=== PATIENT | male | born 1935 | race Caucasian/White ===

== ENCOUNTER 2019-05-02 15:32 | Outpatient (CLI) | payer MEDICARE, OTHER, SELFPAY ==
--- NOTE | 2019-05-02 | XR_ITS ---
WS: [id number] CHEST 2 VIEWS HISTORY: COUGH COMPARISON: 06/29/2016 Lungs: Mild hyperinflation with scattered granulomata. Similar appearance to the prior examination. N o pneumonia or pulmonary mass identified. No effusions. Cardiac size: Normal. Mediastinum/Aorta: Mild atherosclerosis aorta. Bones: Thoracic spondylosis, mild. XR/XR chest 2V* [id number] IMPRESSION: Prior granulomatous disease. No acute cardiopulmonary disease.
== END 2019-05-02 15:33 | disposition home or self-care (01) ==
LOC: RADOUTREAD 05-03 07:26
PROVIDERS: Family Provider Family Medicine; PCP Family Medicine; Referring Provider Family Medicine; Visit Provider Family Medicine
DX: R05 Cough (principal)

== ENCOUNTER 2020-07-26 06:00 | Outpatient (RCR) | payer MEDICARE, OTHER, SELFPAY | END 2020-08-23 23:59 | disposition home or self-care (01) | LOC: SPT 06:00 | PROVIDERS: Family Provider Family Medicine; PCP Family Medicine; Referring Provider Family Medicine; Visit Provider Family Medicine | DX: H81.11 Benign paroxysmal vertigo, right ear (principal) | CPT/HCPCS: 95992; 97161 ==

== ENCOUNTER 2020-08-20 11:50 | Emergency (ER) | payer MEDICARE, OTHER, SELFPAY ==
[2020-08-20 11:57] VITALS: BP 144/73; PULSE 95; RESP 15; O2SAT 98; BMI 23.6
--- NOTE | 2020-08-20 12:11 | W.ED.NEUROSD ---
HPI - Neuro Symptoms/Deficit General: Chief Complaint: Neuro Symptoms/Deficit Stated Complaint: R SIDED NUMBNESS Time Seen by Provider: 08/20/20 12:02 Source: patient Mode of arrival: ambulatory Limitations: no limitations History of Present Illness: HPI Narrative: This is an 85 year old male with no significant past medical history who presents to the ED with concerns for a CVA. He states that he woke this morning and his left middle and index finger were numb as well as the tip of his left thumb. 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 He has no focal weakness, no gait difficulties, no facial droop, headache or dizziness. No prior history of CVA. No history of carpal tunnel disease. History of same: No Severity: mild Quality: numb Relieving factors: none Exacerbating factors: none Context: sudden onset On Anticoagulants: No Associated symptoms: Deny chest pain, cough, diaphoresis, fevers/chills, headache(s), anorexia, malaise, nausea, seizures, short of breath, syncope, tingling, vertigo, vomiting or weakness Treatments Prior to Arrival: none Review of Systems General: Reports: 10 or more systems reviewed and unremarkable except in HPI and below Const: Denies: malaise or diaphoresis Card: Denies: chest pain or syncope GI: Denies: nausea or vomiting Neuro: Denies: headache(s) or vertigo NIH stroke score NIHSS: Level Of Consciousness - 1a: 0 Level Of Consciousness Questions - 1b: Both Correct Level Of Consciousness Commands - 1c: Both Correct Best Gaze - 2: Normal Visual Resendiz - 3: No Visual Loss Facial Palsy - 4: Normal Motor Arm Right - 5: No Drift Motor Arm Left - 5: No Drift Motor Leg Right - 6: No Drift Motor Leg Left - 6: No Drift Limb Ataxia - 7: Absent Sensory - 8: Normal Best Language - 9: No Aphasia Dysarthia - 10: Normal Extinction And Inattention - 11: 0 Score: Total Score: 0 Physical Exam Const: COMMON NORMALS: no acute distress, average body habitus, patient oriented x3, no limitations, healthy appearing, alert and well nourished HENMT: COMMON NORMALS: normocephalic, atraumatic and moist oral mucous membranes HEAD & SCALP: normocephalic and atraumatic Neck/C-Spine: COMMON NORMALS: no meningeal signs and no JVD OTHER: Negative Spurling sign Resp: COMMON NORMALS: normal respiratory effort, No retractions, No use of accessory muscles, clear to auscultation bilaterally and percussion normal AUSCULTATION: clear to auscultation bilaterally PERCUSSION: percussion normal Cardio: COMMON NORMALS: no JVD, regular rate, regular rhythm, S1 normal heart sound present, S2 normal heart sound present, No gallops present (Cardio), No clicks present (Cardio), No murmurs present (Cardio), No rub (Cardio) and Peripheral pulses 2+ throughout RATE: regular rate RHYTHM: regular rhythm HEART SOUNDS: S1 normal heart sound present and S2 normal heart sound present PERIPHERAL PULSES: Peripheral pulses 2+ throughout GI: COMMON NORMALS: Normal to inspection, nondistended, normoactive bowel sounds present, Soft to palpation, non-tender, No hepatosplenomegaly present, no masses and no bruits PALPATION: Yes Soft to palpation and Yes No hepatosplenomegaly present Extremity: COMMON NORMALS: normal to inspection, full ROM, capillary refill normal, no calf tenderness and no pedal edema Neuro: COMMON NORMALS: patient oriented x3 SENSORIUM/ORIENTATION: Yes alert MENINGEAL SIGNS: Yes no meningeal signs Skin: COMMON NORMALS: no rashes or lesions noted, no wounds, turgor normal, no jaundice, no petechiae and no mottling GENERAL SKIN EXAM: no rashes or lesions noted and turgor normal Course Vital Signs: Vital signs: Vital Signs Pulse Rate 95 08/20/20 11:57 Respiratory Rate 15 08/20/20 11:57 Blood Pressure 144/73 08/20/20 11:57 Pulse Oximetry 98 08/20/20 11:57 MDM - Neuro Symptoms/Deficit MDM Narrative: Medical decision making narrative: 85-year-old male who presents to the emergency department with concerns for a CVA. On examination he is NIHSS was 0 he has paresthesia in the distribution of the median nerve of his left hand. He likely has carpal tunnel syndrome or at least some form of median nerve neuropathy. He is reassured and discharged home to follow-up with his primary care provider. Medical Records: Attestation: I reviewed the patient's medical records. Discharge Plan Discharge Patient Disposition: Home Clinical Impression: Left median nerve neuropathy Condition: Stable Prescriptions: Continued furosemide 20 mg tablet 20 mg PO DAILY PRN (Reason: edema) Qty: 7 RF: 0 Discharge Orders: Discharge ED (Routine); Ordered 08/20/20 Ordered By: Lovely Lloyd Referrals: Rakesh Middleton MD [Primary Care Provider] - 1-3 days Discharge Diet: Usual diet Discharge Activity: Increase activity as tolerated Patient Instructions: Carpal Tunnel Syndrome Exercises (GEN), Carpal Tunnel Syndrome (ED), Paresthesia (ED) Activity Restrictions/Additional Instructions: Return for any new or worsening symptoms. What you are exhibiting is symptoms consistent with median nerve neuropathy, the most common cause of that is carpal tunnel syndrome. Follow-up with your primary care provider within 3 days for further evaluation, they may choose to order a test called nerve conduction studies to see how severe it is. Continue home medications. 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
== END 2020-08-20 12:23 | disposition home or self-care (01) ==
LOC: ER 12:22
PROVIDERS: Emergency Provider Family Medicine; PCP Family Medicine
DX: G56.12 Other lesions of median nerve, left upper limb (principal)
CPT/HCPCS: 99282

== ENCOUNTER 2021-06-19 11:39 | Emergency (ER) | payer MEDICARE, OTHER, SELFPAY ==
[2021-06-19 11:45] VITALS: BP 142/68; PULSE 100; RESP 16; TEMP 36.4; O2SAT 98; BMI 22.2
[2021-06-19 11:49] VITALS: BP 153/80; PULSE 83; RESP 14; O2SAT 97
[2021-06-19 13:36] VITALS: BP 153/80; PULSE 83; RESP 15; O2SAT 97
--- NOTE | 2021-06-19 13:46 | XR_ITS ---
WS: [id number] Exam: XR chest 1V portable [id number] Date/Time of Exam: 06/19/2021 1:48 PM Reason For Exam: dyspnea Comparison 04/29/2021. The lungs are fully expanded and clear. Normal cardiomediastinal silhouette. Bony structures are unre markable. No pleural effusions. Monitoring leads superimpose the chest. Degenerative change of both s houlders. XR/XR chest 1V portable [id number] IMPRESSION: 1. No acute cardiopulmonary finding.
--- NOTE | 2021-06-19 13:47 | ECG_ITS ---
[facility] Test Date: 2021-06-19 Pat Name: Samir Zamudio Department: Room: Gender: Male Program Clinician: : 1935 Requested By: Tanner Glover Order Number: [id number] Nick MD: Ramírez Camarena M.D. Measurements Intervals [place] Rate: 87 P: 89 IA: 260 QRS: 257 QRSD: 141 T: 119 QT: 372 QTc: 449 Interpretive Statements SINUS RHYTHM WITH FIRST DEGREE AV BLOCK RIGHT AXIS DEVIATION [QRS AXIS > 100] RIGHT BUNDLE BRANCH BLOCK [120+ ms QRS DURATION, UPRIGHT V1, 40+ ms S IN I/aVL/V4/V5/V6] Compared to ECG 05/16/2016 23:33:55 First degree AV block now present Right-axis deviation now present Left anterior fascicular block no longer present Electronically Signed On 06-20-2021 12:25:18 DIRECTOR OF GRADUATE ADMISSIONS by Ramírez Camarena M.D. [id number]
[2021-06-19 13:56] LABS: Basophils # 0.1 10^3/uL (0.0-0.1); Basophils % 0.6 %; Eosinophils # 0.2 10^3/uL (0.0-0.8); Eosinophils % 1.7 %; Hematocrit 35.4 % (42.0-52.0); Hemoglobin 11.8 g/dL (11.7-16.6); Lymphocytes # 1.4 10^3/uL (0.8-4.8); Mean Corpuscular HGB Conc 33.3 g/dL (30.0-36.0); Mean Corpuscular Hemoglobin 31.1 pg (28.0-34.0); Mean Corpuscular Volume 93.2 fl (80-94); Mean Platelet Volume 9.2 fL (7.4-10.4); Monocytes # 0.7 10^3/uL (0.2-0.9); Monocytes % 7.4 %; Neutrophils # 6.93 10^3/uL (1.8-7.7); Nucleated Red Blood Cells % 0 %; Platelet Count 255 10^3/cmm (130-400); White Blood Count 9.3 10^3/uL (4.0-10.0)
--- NOTE | 2021-06-19 14:24 | W.ED.GENADLT ---
HPI - General Adult General: Chief complaint: General Medical Stated complaint: Chest Congestion Time Seen by Provider: 06/19/21 12:44 History of Present Illness: Patient is an 86-year-old male with history of recent pneumonia 3 weeks ago presenting to the emergency room with 3 days of worsening cough and shortness of breath. Patient tells me that he thinks that he may develop pneumonia again. Patient completed course of antibiotics was admitted to hospital 3 weeks ago. Since then, patient has been doing well up until 3 days ago when reported productive cough. Patient denies any fever or chills, nasal congestion, diarrhea, melena/hematochezia. Patient denies muscle ache, malaise, generalized weakness, change in taste or smell. Patient denies any associated chest pain. Recent contact with Covid positive patient. Has any other complaints current abdominal pain, or complaints. Onset:3 days ago Duration:3 days Location:home Severity:mild/moderate Associated symptoms: Reports dyspnea; Deny chest pain, nausea, rash, palpitations or vomiting Review of Systems Const: Denies: fever(s) or chills Eyes: Denies: change in vision ENMT: Denies: mouth pain Card: Denies: chest pain or palpitations Resp: Reports: dyspnea and non-productive cough GI: Denies: abdominal pain, nausea, vomiting or diarrhea : Denies: dysuria Musc: Denies: extremity pain Skin/Breast: Denies: rash or new lesions Neuro: Denies: weakness in extremities Psych: Reports: other (Normal mood) Nabil/Lymph: Denies: easy bruising [facility] ED PFSH: Medical History (Updated 06/19/21 @ 14:26 by Tanner Glover MD) Pneumonia Social History (Updated 06/19/21 @ 14:26 by Tanner Glover MD) Smoking and tobacco status: never smoked Alcohol intake: never Physical Exam Const: COMMON NORMALS: alert HENMT: COMMON NORMALS: atraumatic HEAD & SCALP: atraumatic MOUTH: moist mucous membranes not abnormal Eye: COMMON NORMALS: EOMs intact bilaterally and conjunctivae normal CONJUNCTIVA: Yes conjunctivae normal Neck/C-Spine: COMMON NORMALS: full ROM and supple Resp: COMMON NORMALS: normal respiratory effort OTHER: +coarse breath sounds R > L Cardio: COMMON NORMALS: regular rate RATE: regular rate GI: COMMON NORMALS: Soft to palpation and non-tender PALPATION: Yes Soft to palpation Extremity: COMMON NORMALS: full ROM Neuro: SENSORIUM/ORIENTATION: Yes alert MOTOR EXAM: No Abnormal motor strength present and Other motor observations present (no focal motor deficits) Psych: COMMON NORMALS: speech normal SPEECH: Yes normal speech MOOD & AFFECT: Yes euthymic mood Course Vital Signs: Vital signs: Vital Signs Temperature 97.5 F L 06/19/21 11:45 Pulse Rate 89 06/19/21 15:51 Respiratory Rate 20 H 06/19/21 15:51 Blood Pressure 124/67 06/19/21 15:51 Pulse Oximetry 94 06/19/21 15:51 MDM - General Adult Medical Decision Making 86-year-old male with a history of pneumonia in the emergency room 3 days worth of cough. Exam, patient is coarse breath sound right greater than left. Patient can he be satting well on room air without any signs of respiratory distress. Patient is afebrile today. Lab work-up showed a white count of 9.3. X-ray chest is negative for any acute finding. Procalcitonin does not appear to be elevated. BNP EKG wnl. Troponin x 2 <delta < 5. EKG is non ischemic. Given mildly elevated troponins, decision was made to refer patient to cardiology for close outpatient followup. Patient requests for a lasix 20mg script in case of dyspnea given he is out of the medicine. Patient is given a few day supplies of lasix and instructed to follow up closely with PCP for dyspnea. I have given patient follow up with our nurse case management to be seen by our outpatient Cardiology for troponin changes. Patient aware of a call from our nurse case management to schedule for appointment(s) and verbalizes understanding of the importance of following up. Doubt ACS/PE or other emergent causes of patient's cough. Patient has no complaints of chest pain, exertional chest pain/dypspnea, N/V, diaphoresis or any anginal equivalent complaints currently. No suspicion for aortic dissection given no widened mediastinum, 2+ upper extremity pulses, or tearing pain. No suspicion for PE given no pleuritic chest pain, recent immobilization or surgery hemoptysis, or other VTE risk factors. EKG is non-ischemic. XR normal. I have given patient follow up with our nurse case management to be seen by a primary care provider for evaluation of cough. Patient aware of a call from our nurse case management to schedule for appointment(s) and verbalizes understanding of the importance of following up. Disposition: Discharge. Patient counseled regarding diagnostic impression, treatment plan. Patient given ED strict return precautions to return for continuation, worsening, or development of new symptoms. Instructed to f/u w/ PCP regarding symptoms today. Patient verbalized understanding. Lab Data : 06/19/21 13:33 06/19/21 13:33 Radiology Impressions Chest X-Ray 06/19/21 13:46 IMPRESSION: 1. No acute cardiopulmonary finding. Laboratory Results WBC 9.3 10^3/uL (4.0-10.0) 06/19/21 13:33 RBC 3.80 10^6/uL (4.1-5.3) L 06/19/21 13:33 Hgb 11.8 g/dL (11.7-16.6) 06/19/21 13:33 Hct 35.4 % (42.0-52.0) L 06/19/21 13:33 MCV 93.2 fl (80-94) 06/19/21 13:33 MCH 31.1 pg (28.0-34.0) 06/19/21 13:33 MCHC 33.3 g/dL (30.0-36.0) 06/19/21 13:33 RDW 15.0 % (12.1-15.1) 06/19/21 13:33 Plt Count 255 10^3/cmm (130-400) 06/19/21 13:33 MPV 9.2 fL (7.4-10.4) 06/19/21 13:33 Neut % (Auto) 75.0 % 06/19/21 13:33 Lymph % (Auto) 15.0 % 06/19/21 13:33 Jenkins % (Auto) 7.4 % 06/19/21 13:33 Eos % (Auto) 1.7 % 06/19/21 13:33 Baso % (Auto) 0.6 % 06/19/21 13:33 Neut # (Auto) 6.93 10^3/uL (1.8-7.7) 06/19/21 13:33 Lymph # (Auto) 1.4 10^3/uL (0.8-4.8) 06/19/21 13:33 Jenkins # (Auto) 0.7 10^3/uL (0.2-0.9) 06/19/21 13:33 Eos # (Auto) 0.2 10^3/uL (0.0-0.8) 06/19/21 13:33 Baso # (Auto) 0.1 10^3/uL (0.0-0.1) 06/19/21 13:33 Nucleated RBC % (auto) 0 % 06/19/21 13:33 Nucleated RBCs # 0.0 /100WBC 06/19/21 13:33 Sodium 135 mmol/L (136-145) L 06/19/21 13:33 Potassium 4.6 mmol/L (3.5-5.1) 06/19/21 13:33 Chloride 102 mmol/L (98-107) 06/19/21 13:33 Carbon Dioxide 22 mmol/L (22-29) 06/19/21 13:33 Anion Gap 15.6 (5-19) 06/19/21 13:33 BUN 16 mg/dL (8-23) 06/19/21 13:33 Creatinine 1.1 mg/dL (0.7-1.2) 06/19/21 13:33 GFR Calculation Not Reportable 06/19/21 13:33 Glucose 102 mg/dL (65-115) 06/19/21 13:33 Calculated Osmolality 281 mOsm/kg (285-295) L 06/19/21 13:33 Calcium 9.4 mg/dL (8.5-10.5) 06/19/21 13:33 Troponin T Gen 5 ng/L 64 ng/L (0-15) H 06/19/21 14:11 Troponin T 120 Minute 67.01 ng/L (0-15) H 06/19/21 15:14 Delta Troponin T 3.01 ABS# (0-10) 06/19/21 15:14 NT-Pro-B Natriuret Pep 391 pg/mL (0-450) 06/19/21 13:33 Procalcitonin 0.05 ng/mL (0-0.5) 06/19/21 13:33 Coronavirus 229E (PCR) Not detected (NOT DETECT) 06/19/21 14:40 SARS-CoV-2 (PCR) Not detected (NOT DETECT) 06/19/21 14:40 Imaging Data Other Imaging: Radiologist's impression: [facility] [address] [place] [address] XRay Report Signed Patient: Samir Zamudio Unit #: [id number] : 1935 Age/Sex: 86 / M ADM Date: 06/19/21 Loc: ER Room/Bed: Attending Dr: Ordering Provider/Ordering MD: Tanner Glover MD Date of Service: 06/19/21 Procedure(s): XR chest 1V portable [id number] Accession Number(s): [id number] Report Number: [id number] WS: [id number] Exam: XR chest 1V portable [id number] Date/Time of Exam: 06/19/2021 1:48 PM Reason For Exam: dyspnea Comparison 04/29/2021. The lungs are fully expanded and clear. Normal cardiomediastinal silhouette. Bony structures are unremarkable. No pleural effusions. Monitoring leads superimpose the chest. Degenerative change of both shoulders. XR/XR chest 1V portable [id number] IMPRESSION: 1. No acute cardiopulmonary finding. ? Dictated By: Micheal Ordaz DO Signed By: Micheal Ordaz DO Signed Date/Time: 06/19/21 1400 DD/ 1359 Discharge Plan Discharge Patient Disposition: Home Clinical Impression: Cough Condition: Stable Prescriptions: New furosemide 20 mg tablet 20 mg PO DAILY PRN (Reason: dyspnea) 10 Days 0RF No Action furosemide 20 mg tablet 20 mg PO DAILY PRN (Reason: edema) Qty: 7 0RF allopurinol 100 mg tablet 100 mg PO DAILY 0RF levothyroxine 25 mcg tablet 25 mcg PO DAILY 0RF tamsulosin 0.4 mg capsule 0.4 mg PO DAILY 0RF pantoprazole 40 mg tablet,delayed release (DR/EC) 40 mg PO DAILY 0RF lisinopril 40 mg tablet 40 mg PO DAILY 0RF B12 5,000-100 mcg Lozenge 1 italo SUBLINGUAL DAILY 0RF amlodipine 5 mg tablet 5 mg PO DAILY 0RF Discharge Orders: Discharge ED (Routine); Ordered 06/19/21 Ordered By: Tanner Glover Referrals: Rakesh Middleton MD [Primary Care Provider] - Discharge Diet: Advance as tolerated Discharge Activity: Increase activity as tolerated Patient Instructions: Acute Cough (ED) Activity Restrictions/Additional Instructions: Come back to the emergency room if your symptoms worsen, have any shortness of breath, fever/chills, dehydration, inability tolerate food or drinks, any difficulty breathing, or any new or concerning complaints. Coding Level of Care Code ED Thermometer Maker for Willieg Fwd Exam Comprehensive
[2021-06-19 14:26] LABS: NT Pro B Type Natriuretic Pept 391 pg/mL (0-450); Procalcitonin 0.05 ng/mL (0-0.5)
[2021-06-19 14:36] VITALS: BP 148/70; PULSE 106; RESP 23; O2SAT 96
[2021-06-19 14:37] LABS: Anion Gap 15.6 (5-19); Blood Urea Nitrogen 16 mg/dL (8-23); Calcium 9.4 mg/dL (8.5-10.5); Carbon Dioxide 22 mmol/L (22-29); Chloride 102 mmol/L (98-107); Creatinine Clr Calc Pharmacy 49.0383; Glucose 102 mg/dL (65-115); Osmolality Calculated 281 mOsm/kg (285-295); Potassium 4.6 mmol/L (3.5-5.1); Sodium 135 mmol/L (136-145)
[2021-06-19 14:52] LABS: Troponin T (5th) Once 64 ng/L (0-15)
[2021-06-19 15:00] VITALS: BP 124/67
[2021-06-19 15:43] LABS: Troponin 5 2HR 67.01 ng/L (0-15)
[2021-06-19 15:45] LABS: Troponin 5 2HR Delta 3.01 ABS# (0-10)
[2021-06-19 15:51] VITALS: BP 124/67; PULSE 89; RESP 20; O2SAT 94
[2021-06-19 16:36] LABS: Adenovirus Not Detected (NOT DETECT); Chlamydia Pneumoniae Not Detected (NOT DETECT); Coronavirus 229E,HKU1,NL63,OC4 Not Detected (NOT DETECT); Human Metapneumovirus Not Detected (NOT DETECT); Human Rhinovirus/Enterovirus Not Detected (NOT DETECT); Influenza A Not Detected (NOT DETECT); Influenza A H1 Not Detected (NOT DETECT); Influenza A H1-2009 Not Detected (NOT DETECT); Influenza A H3 Not Detected (NOT DETECT); Influenza B Not Detected (NOT DETECT); Mycoplasma Pneumoniae Not Detected (NOT DETECT); Parainfluenza Virus Type 1 Not Detected (NOT DETECT); Parainfluenza Virus Type 2 Not Detected (NOT DETECT); Parainfluenza Virus Type 3 Not Detected (NOT DETECT); Parainfluenza Virus Type 4 Not Detected (NOT DETECT); Respiratory Syncytial Virus A Not Detected (NOT DETECT); Respiratory Syncytial Virus B Not Detected (NOT DETECT); SARS-COV-2 Not Detected (NOT DETECT)
--- NOTE | 2021-06-23 15:23 | DCPLANNER ---
Addendum entered by Katherine Mcghee 07/24/21 09:23: Patient had a follow up appointment scheduled with heart care - appointment was cancelled. Original Note: manager front office had message to schedule a follow up appointment for patient with heart care. manager front office called heart care, spoke with Shanel, gave clinic patients information. A followup appointment was scheduled for Thursday, July 22, 2021 at 12:[address] Christopher. manager front office called patients daughter and gave her the appointment information.
== END 2021-06-19 16:03 | disposition home or self-care (01) ==
PROVIDERS: Emergency Provider Emergency Medicine; PCP Family Medicine
DX: R05.9 Cough, unspecified (principal); Z20.822 Contact with and (suspected) exposure to COVID-19
CPT/HCPCS: 71045; 80048; 83880; 84145; 84484; 85025; 87635; 93005; 99283

== ENCOUNTER 2021-09-03 10:42 | Outpatient (CLI) | payer MEDICARE, OTHER, SELFPAY ==
--- NOTE | 2021-09-03 10:52 | FL_ITS ---
WS: [id number] FL barium swallow modifd [id number] REASON FOR EXAM: Other dysphagia FLUOROSCOPY TIME: 2min [id number] # OF SPOT FILMS: 6 FINDINGS: The swallowing of varying consistencies of barium was evaluated with video fluoroscopy with the patie nt in the sitting upright position. Examination was supervised by the speech therapy department. Patient was observed to have a small amount of contrast entered the upper airway with different consi stencies of barium. A full analysis with report will be rendered by the speech therapy department. A follow-up chest x-ray will be obtained to identify any aspirated barium. FL/FL barium swallow modifd [id number] IMPRESSION: Barium swallow examination as above.
--- NOTE | 2021-09-03 11:20 | XR_ITS ---
WS: [email or web address] XR chest 2V* [id number] REASON FOR EXAM: ASPIRATION DURING MODIFIED, RADIOLOGIST REQUESTED FINDINGS: The chest is unchanged compared to 07/18/2021. The heart and the mediastinum are within normal limits. Calcified granulomatous disease is seen in both hemithoraces. There is an increase in the interstitium opacity in the mid and lower lung staton. No aspirated barium is identified on this examination. XR/XR chest 2V* [id number] IMPRESSION: No acute chest abnormality. No aspiration barium identified.
== END 2021-09-03 10:43 | disposition home or self-care (01) ==
LOC: RAD 10:46
PROVIDERS: PCP Family Medicine; Visit Provider Family Medicine
DX: R13.10 Dysphagia, unspecified (principal); J84.10 Pulmonary fibrosis, unspecified
CPT/HCPCS: 71046; 74230; 92611

== ENCOUNTER 2021-09-07 09:19 | Inpatient (IN) | payer MEDICARE, OTHER, SELFPAY ==
[2021-09-07 09:24] VITALS: BP 116/50; RESP 18; TEMP 36.8; O2SAT 99
--- NOTE | 2021-09-07 09:30 | CTR_ITS ---
PROCEDURE INFORMATION: Exam: CT Head Without Contrast Exam date and time: 09/07/2021 10:08 AM Age: 86 years old Clinical indication: Injury or trauma; Fall; Blunt trauma (contusions or hematomas); Consciousness not specified; Altered mental status/memory loss; Age related cognitive decline TECHNIQUE: Imaging protocol: Computed tomography of the head without contrast. Radiation optimization: All CT scans at this facility use at least one of these dose optimization techniques: automated exposure control; mA and/or kV adjustment per patient size (includes targeted exams where dose is matched to clinical indication); or iterative reconstruction. COMPARISON: CT head wo con* [id number] 05/16/2016 7:20 PM RADIATION DOSE METRICS: Total DLP (mGy-cm): 842.24 FINDINGS: Brain: The most apical portion of the head is not included in the field of view. No acute hemorrhage identified. No large territorial areas of hypoattenuation concerning for ischemic infarct identified. No intracranial mass effect. Punctate calcifications in the bilateral basal ganglia. Cerebral ventricles: The ventricles are within normal limits. Paranasal sinuses: Layering fluid in the right maxillary sinus. Mastoid air cells: The visualized mastoid air cells are well aerated. Bones/joints: The osseous structures are intact. Soft tissues: Unremarkable. CT/CT head wo con* [id number] IMPRESSION: 1. The most apical portion of the head is not included in the field of view. 2. No acute intracranial abnormality within the field of view. 3. Minimal layering fluid in the right maxillary sinus.
--- NOTE | 2021-09-07 09:30 | XRR_ITS ---
PROCEDURE INFORMATION: Exam: XR Chest Exam date and time: 09/07/2021 9:35 AM Age: 86 years old Clinical indication: Dyspnea; Additional info: AMS TECHNIQUE: Imaging protocol: XR of the chest. Views: 1 view. COMPARISON: CR XR chest 2V* [id number] 09/03/2021 11:23 AM FINDINGS: Lungs: Minimal bibasilar pulmonary scarring. Pleural spaces: No pneumothorax. No pleural effusion. Heart/Mediastinum: The cardiomediastinal silhouette is within normal limits. Bones/joints: Degenerative changes in the shoulder joints. XR/XR chest 1V portable [id number] IMPRESSION: No acute cardiopulmonary abnormality identified.
--- NOTE | 2021-09-07 09:31 | ECG_ITS ---
[facility] Test Date: 2021-09-07 Pat Name: Samir Zamudio Department: Room: Gender: Male Supervisor Warping Department: : 1935 Requested By: Guerrero Keating Order Number: [id number] Nick MD: Dione Miller M.D. Measurements Intervals [place] Rate: 79 P: 80 CT: 247 QRS: -81 QRSD: 131 T: -16 QT: 364 QTc: 417 Interpretive Statements SINUS RHYTHM WITH FIRST DEGREE AV BLOCK RIGHT BUNDLE BRANCH BLOCK LEFT ANTERIOR FASCICULAR BLOCK MODERATE T-WAVE ABNORMALITY, CONSIDER LATERAL ISCHEMIA Compared to ECG 06/19/2021 13:32:37 Left anterior fascicular block now present T-wave abnormality now present Possible ischemia now present Right-axis deviation no longer present Electronically Signed On 09-07-2021 13:24:17 CDT by Dione Miller M.D. [id number]
--- NOTE | 2021-09-07 09:31 | W.ED.AMS ---
HPI - Altered Mental Status General: Chief Complaint: Weakness Stated Complaint: GENERAL WEAKNESS Time Seen by Provider: 09/07/21 09:23 History of Present Illness: 86-year-old male presents due to fall and concern for confusion. Son reports that he was found on the floor. Patient denies fall and states that he laid down on the floor after going to the bathroom in the middle of the night but unable to explain to me why. Denies any focal numbness or tingling. Denies any vision change hearing change or vertigo. Denies any headache neck pain chest pain nominal pain or dysuria. States that several months ago he had a pneumonia and has been feeling generalized weakness since then. However denies any focal weakness. Review of Systems Narrative: - CONSTITUTIONAL: Denies weight loss, fever and chills. - HEENT: Denies changes in vision and hearing. - RESPIRATORY: Denies SOB and cough. - CV: Denies palpitations and CP. - GI: Denies abdominal pain, nausea, vomiting and diarrhea. - : Denies dysuria and urinary frequency. - MSK: Denies myalgia and joint pain. - SKIN: Denies rash and pruritus. - NEUROLOGICAL: Denies headache, focal weakness, numbness and syncope. - PSYCHIATRIC: Denies suicidal ideation [facility] ED PFSH: Medical History (Updated 06/27/21 @ 00:01 by ) Pneumonia Social History (Updated 06/19/21 @ 14:26 by Tanner Glover MD) Smoking and tobacco status: never smoked Alcohol intake: never Physical Exam Narrative: - GENERAL: Alert and oriented x 3. No acute distress. Well-nourished. - EYES: EOMI. Anicteric. - HENT: Atraumatic, no C-spine tenderness. Moist mucous membranes. No scleral icterus. No cervical lymphadenopathy. - LUNGS: Clear to auscultation bilaterally. No accessory muscle use. Equal lung sounds bilaterally. No respiratory distress. - CARDIOVASCULAR: Regular rate and rhythm. No murmur. No JVD. - ABDOMEN: Soft, non-tender and non-distended. Negative CVA tenderness bilaterally, no rebound or guarding, negative Carrasco sign. No palpable masses. - EXTREMITIES: No edema. Non-tender. - SKIN: No rashes or lesions. Warm. - NEUROLOGIC: No meningismus or focal neurological deficits. CN II-XII grossly intact. - PSYCHIATRIC: Cooperative. Appropriate mood and affect. Course Vital Signs: Vital signs: Vital Signs Temperature 98.2 F 09/07/21 09:24 Respiratory Rate 18 09/07/21 09:24 Blood Pressure 116/50 09/07/21 09:24 Pulse Oximetry 99 09/07/21 09:24 MDM - Altered Mental Status Medical Decision Making 86-year-old presents after fall. He denies any focal pain. CT scan of the head does not reveal intracranial hemorrhage or acute abnormality. However CK level is elevated and there is NELSON with creatinine 1.6. IV fluids provided. His white count elevation of 24. Denies any headache or neck pain. There is no meningismus. Denies any abdominal pain dysuria or focal infectious symptoms. Broad-spectrum antibiotics started. Does have elevated troponin to the 80s and repeat is mildly uptrending however delta is less than 10. EKG does not reveal any sign of acute ischemia or other acute abnormality. Patient specifically denies any chest pain or shortness of breath. Aspirin provided. We will continue to trend troponins. However there is also possibility that troponins are uptrending due to reduced renal clearance with evolving NELSON. Remainder of lab work and imaging reviewed. Discussed with hospitalist and they agreed patient would benefit from admission. Patient admitted in stable condition. Further evaluation management per hospitalist team. Lab Data : 09/07/21 09:35 09/07/21 09:35 Radiology Impressions Chest X-Ray 09/07/21 09:30 IMPRESSION: No acute cardiopulmonary abnormality identified. Head CT 09/07/21 09:30 IMPRESSION: 1. The most apical portion of the head is not included in the field of view. 2. No acute intracranial abnormality within the field of view. 3. Minimal layering fluid in the right maxillary sinus. Laboratory Results WBC 24.8 10^3/uL (4.0-10.0) H 09/07/21 09:35 RBC 3.59 10^6/uL (4.1-5.3) L 09/07/21 09:35 Hgb 10.8 g/dL (11.7-16.6) L 09/07/21 09:35 Hct 33.9 % (42.0-52.0) L 09/07/21 09:35 MCV 94.4 fl (80-94) H 09/07/21 09:35 MCH 30.1 pg (28.0-34.0) 09/07/21 09:35 MCHC 31.9 g/dL (30.0-36.0) 09/07/21 09:35 RDW 14.8 % (12.1-15.1) 09/07/21 09:35 Plt Count 365 10^3/cmm (130-400) 09/07/21 09:35 MPV 9.6 fL (7.4-10.4) 09/07/21 09:35 Neut % (Auto) 87.0 % 09/07/21 09:35 Lymph % (Auto) 6.4 % 09/07/21 09:35 [place] % (Auto) 5.4 % 09/07/21 09:35 Eos % (Auto) 0.0 % 09/07/21 09:35 Baso % (Auto) 0.3 % 09/07/21 09:35 Neut # (Auto) 21.54 10^3/uL (1.8-7.7) H 09/07/21 09:35 Lymph # (Auto) 1.6 10^3/uL (0.8-4.8) 09/07/21 09:35 [place] # (Auto) 1.3 10^3/uL (0.2-0.9) H 09/07/21 09:35 Eos # (Auto) 0.0 10^3/uL (0.0-0.8) 09/07/21 09:35 Baso # (Auto) 0.1 10^3/uL (0.0-0.1) 09/07/21 09:35 Nucleated RBC % (auto) 0 % 09/07/21 09:35 Nucleated RBCs # 0.0 /100WBC 09/07/21 09:35 Sodium 135 mmol/L (136-145) L 09/07/21 09:35 Potassium 5.4 mmol/L (3.5-5.1) H 09/07/21 09:35 Chloride 98 mmol/L (98-107) 09/07/21 09:35 Carbon Dioxide 19 mmol/L (22-29) L 09/07/21 09:35 Anion Gap 23.4 (5-19) H 09/07/21 09:35 BUN 26 mg/dL (8-23) H 09/07/21 09:35 Creatinine 1.6 mg/dL (0.7-1.2) H 09/07/21 09:35 GFR Calculation Not Reportable 09/07/21 09:35 Glucose 109 mg/dL (65-115) 09/07/21 09:35 Calculated Osmolality 285 mOsm/kg (285-295) 09/07/21 09:35 Calcium 9.3 mg/dL (8.5-10.5) 09/07/21 09:35 Total Bilirubin 1.3 mg/dL (0.15-1.2) H 09/07/21 09:35 AST 29 U/L (0-40) 09/07/21 09:35 ALT 9 U/L (0-41) 09/07/21 09:35 Alkaline Phosphatase 73 IU/L (40-130) 09/07/21 09:35 Creatine Kinase 704 U/L (39-308) H* 09/07/21 09:35 Troponin T Baseline 89 ng/L (0-15) H 09/07/21 09:35 Troponin T 120 Minute 98.40 ng/L (0-15) H 09/07/21 12:26 Delta Troponin T 9.40 ABS# (0-10) 09/07/21 12:26 NT-Pro-B Natriuret Pep 5246 pg/mL (0-450) H 09/07/21 09:35 Total Protein 6.9 g/dL (6.6-8.7) 09/07/21 09:35 Albumin 3.4 g/dL (3.5-5.2) L 09/07/21 09:35 Globulin 3.5 g/dL (1.3-4.6) 09/07/21 09:35 TSH 2.62 uIU/mL (0.27-4.20) 09/07/21 09:35 Free T4 1.29 ng/dL (0.82-1.77) 09/07/21 09:35 Urine Color Yellow (Yellow) 09/07/21 13:25 Urine Appearance Clear (CLEAR) 09/07/21 13:25 Urine pH 5 (5-7) 09/07/21 13:25 Ur Specific [place] 1.010 (1.005-1.030) 09/07/21 13:25 Urine Protein Neg (Negative) 09/07/21 13:25 Urine Glucose (UA) Norm (Normal) 09/07/21 13:25 Urine Ketones Negative (Negative) 09/07/21 13:25 Urine Blood 2+ (Negative) H 09/07/21 13:25 Urine Nitrate Negative (Negative) 09/07/21 13:25 Urine Bilirubin Neg (Negative) 09/07/21 13:25 Urine Urobilinogen Norm mg/dL (Negative) 09/07/21 13:25 Ur Leukocyte Esterase Negative (Negative) 09/07/21 13:25 Urine RBC 0-4 /hpf (0-2) H 09/07/21 13:25 Urine WBC Rare /hpf (0-5) 09/07/21 13:25 Ur Squamous Epith Cells None /hpf (0-5) 09/07/21 13:25 Amorphous Sediment Not Reportable 09/07/21 13:25 Urine Bacteria 1+ /hpf (NONE) H 09/07/21 13:25 Hyaline Casts 0-4 /lpf H 09/07/21 13:25 SARS-CoV-2 Ag (Rapid) Negative (Negative) 09/07/21 09:40 EKG Data EKG 1: Other EKG comments: Sinus rhythm with first-degree AV block, left anterior fascicular block, no sign of acute ischemia or other acute abnormality. Discharge Plan Discharge Condition: Stable Prescriptions: No Action furosemide 20 mg tablet 20 mg PO DAILY PRN (Reason: edema) Qty: 7 0RF allopurinol 100 mg tablet 100 mg PO DAILY 0RF levothyroxine 25 mcg tablet 25 mcg PO DAILY 0RF tamsulosin 0.4 mg capsule 0.4 mg PO DAILY 0RF pantoprazole 40 mg tablet,delayed release (DR/EC) 40 mg PO DAILY 0RF lisinopril 40 mg tablet 40 mg PO DAILY 0RF B12 5,000-100 mcg Lozenge 1 italo SUBLINGUAL DAILY 0RF amlodipine 5 mg tablet 5 mg PO DAILY 0RF Referrals: Rakesh Middleton MD [Primary Care Provider] - Coding Level of Care Code ED Transport Specialist for [facility]
[2021-09-07 09:48] LABS: Basophils # 0.1 10^3/uL (0.0-0.1); Basophils % 0.3 %; Hematocrit 33.9 % (42.0-52.0); Hemoglobin 10.8 g/dL (11.7-16.6); Lymphocytes # 1.6 10^3/uL (0.8-4.8); Lymphocytes % 6.4 %; Mean Corpuscular HGB Conc 31.9 g/dL (30.0-36.0); Mean Corpuscular Hemoglobin 30.1 pg (28.0-34.0); Mean Corpuscular Volume 94.4 fl (80-94); Mean Platelet Volume 9.6 fL (7.4-10.4); Monocytes # 1.3 10^3/uL (0.2-0.9); Monocytes % 5.4 %; Neutrophils # 21.54 10^3/uL (1.8-7.7); Nucleated Red Blood Cells % 0 %; Platelet Count 365 10^3/cmm (130-400); Red Blood Count 3.59 10^6/uL (4.1-5.3); Red Cell Distribution Width 14.8 % (12.1-15.1); White Blood Count 24.8 10^3/uL (4.0-10.0)
[2021-09-07 10:17] LABS: Troponin(5th) Baseline 89 ng/L (0-15)
[2021-09-07 10:27] LABS: SARS Covid-2 Antigen Negative (Negative)
[2021-09-07 10:28] LABS: Alanine Aminotransferase 9 U/L (0-41); Albumin Level 3.4 g/dL (3.5-5.2); Alkaline Phosphatase 73 IU/L (40-130); Blood Urea Nitrogen 26 mg/dL (8-23); Calcium 9.3 mg/dL (8.5-10.5); Carbon Dioxide 19 mmol/L (22-29); Chloride 98 mmol/L (98-107); Free T4 Free Thyroxine 1.29 ng/dL (0.82-1.77); Globulin 3.5 g/dL (1.3-4.6); Glucose 109 mg/dL (65-115); NT Pro B Type Natriuretic Pept 5246 pg/mL (0-450); Osmolality Calculated 285 mOsm/kg (285-295); Sodium 135 mmol/L (136-145); Thyroid Stimulating Hormone 2.62 uIU/mL (0.27-4.20); Total Bilirubin 1.3 mg/dL (0.15-1.2); Total Protein 6.9 g/dL (6.6-8.7)
[2021-09-07 10:33] LABS: Anion Gap 23.4 (5-19); Aspartate Amino Transferase 29 U/L (0-40); Potassium 5.4 mmol/L (3.5-5.1)
[2021-09-07 10:35] LABS: Creatine Phosphokinase 704 U/L (39-308)
--- NOTE | 2021-09-07 10:35 | PC.NURSE ---
Physician notified of critical lab value. CK 704. No new orders at this time.
[2021-09-07] MEDS: aspirin 81 mg Chew Tablet 324 MG PO (11:08)
--- NOTE | 2021-09-07 11:31 | ECG_ITS ---
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 Measurements Intervals [place] Rate: 78 P: 90 NE: 241 QRS: -83 QRSD: 136 T: 32 QT: 382 QTc: 437 Interpretive Statements SINUS RHYTHM WITH FIRST DEGREE AV BLOCK RIGHT BUNDLE BRANCH BLOCK LEFT ANTERIOR FASCICULAR BLOCK Compared to ECG 09/07/2021 10:27:21 T-wave abnormality no longer present Possible ischemia no longer present Electronically Signed On 09-07-2021 13:27:46 CDT by Dione Miller M.D. [id number]
[2021-09-07 13:51] LABS: Add Urine Culture? No; Bacteria Urine 1+ /hpf; Bilirubin Urine Neg (Negative); Blood Urine 2+ (Negative); Glucose Urine UA Norm (Normal); Hyaline Casts Urine 0-4 /lpf; Ketones Urine Negative (Negative); Leukocyte Esterase Urine Negative (Negative); Nitrate Urine Negative (Negative); Protein Urine Neg (Negative); RBC Urine 0-4 /hpf (0-2); Urine Appearance Clear (CLEAR); Urine Color Yellow (Yellow); Urobilinogen Urine Norm (Negative); WBC Urine RARE /hpf (0-5); pH Urine 5 (5-7)
--- NOTE | 2021-09-07 14:00 | PM.HP ---
Providers/Chief Complaint Primary Care Provider: Rakesh Middleton MD Chief Complaint: GENERAL WEAKNESS History of Present Illness Samir Zamudio is a 86 year old male with a past medical history significant for hypertension, diabetes mellitus, benign prostatic hypertrophy, and hypothyroidism who presents to the emergency department after being found down. Patient reports getting out of bed to urinate around 3 AM. He reports the next thing he remembers is his son found him on the floor between the television and his bed. Patient is unsure how he got to the ground, unsure if he fell, unsure if he lost consciousness, and unsure if he hit his head. He denies any joint pain, chest pain, fevers, chills, nausea, emesis, or diarrhea. Son reports that he had poor p.o. intake this week. He describes a gradual decline over the last several months. States that his p.o. intake has been very poor causing substantial weight loss. He also reports that the patient recently has been found to be aspirating. He states the patient has a chronic cough that has not changed in nature in the last several days. Patient states that he does not eat because he does not have any appetite. Patient denies any family history of known malignancy. Son report patient has a sacral pressure injury for which home health has been providing wound care. He states it is improved about 20%. In the emergency department, patient was found to have leukocytosis with left shift, hyperkalemia, metabolic acidosis, acute kidney injury, acute myocardial injury, elevated BNP, and hyperbilirubinemia. Review of Systems Narrative: A complete review of systems was obtained and is negative except as stated in HPI. Medications/Allergies Home Medications Medication Instructions Recorded Confirmed Last Taken Type furosemide 20 mg tablet 20 mg PO DAILY PRN #7 tab 01/15/20 06/19/21 06/19/21 Rx allopurinol 100 mg tablet 100 mg PO DAILY 06/19/21 06/19/21 06/19/21 History amlodipine 5 mg tablet 5 mg PO DAILY 06/19/21 06/19/21 06/19/21 History cyanocobalamin (B12)-cobamamide 1 italo SUBLINGUAL DAILY 06/19/21 06/19/21 Unknown History 5,000 mcg-100 mcg sublingual lozenge (B12) levothyroxine 25 mcg tablet 25 mcg PO DAILY 02/06/19/21 06/19/21 History lisinopril 40 mg tablet 40 mg PO DAILY 06/19/21 06/19/21 06/19/21 History pantoprazole 40 mg tablet,delayed 40 mg PO DAILY 06/19/21 06/19/21 06/19/21 History release tamsulosin 0.4 mg capsule 0.4 mg PO DAILY 06/19/21 06/19/21 06/19/21 History Allergies Allergy/AdvReac Type Severity Reaction Status Date / Time cephalexin Allergy Unknown Verified 06/19/21 14:39 erythromycin base Allergy Unknown Verified 06/19/21 14:39 glipizide Allergy Unknown Verified 06/19/21 14:39 Penicillins Allergy Unknown Verified 06/19/21 14:39 sulfamethoxazole Allergy Unknown Verified 06/19/21 14:39 [From Bactrim] trimethoprim [From Bactrim] Allergy Unknown Verified 06/19/21 14:39 PFSH Acute PFSH: Medical History Benign prostatic hyperplasia GERD (gastroesophageal reflux disease) Hypertension Hypothyroidism Pneumonia Type 2 diabetes mellitus Surgical History History of appendectomy History of cholecystectomy Social History Smoking and tobacco status: never smoked Alcohol intake: never Vitals/I&O/Wt Last Vital Signs Temp 98.2 F 09/07/21 09:24 Resp 18 09/07/21 09:24 BP 116/50 09/07/21 09:24 Pulse Ox 99 09/07/21 09:24 Weight last 48 hrs Weight 63.503 kg Physical Exam Narrative: General: Patient is awake and alert. Appears fatigued. Peers stated age. Head: Normocephalic. Atraumatic. EOM intact. Dry mucous membranes. Neck: No JVD. Cardiovascular: RRR. No gallops. Systolic murmur. No peripheral edema. Lungs: Breath sounds diminished bilateral bases, no use of accessory muscles, no crackles or wheezes. Skin: No jaundice. No rashes. Abdomen: Hypoactive bowel sounds, abdomen soft and nontender. Rectal: There is a sacral ulcer present with clean base without foul discharge. Extremeties: No cyanosis or clubbing. Musculoskeletal: No swollen or erythematous joints. Neurological: Moves all 4 extremities. No myoclonus. Data : 09/07/21 09:35 09/07/21 09:35 A&P Assessment and plan (1) Generalized weakness: Associated with failure to thrive and unintended weight loss. Found down. Denies focal complaints. No significant trauma on exam. CT head negative for acute intracranial abnormality although apical portion of head was not included in view. Telemetry monitoring for arrhythmia. Urinalysis and chest x-ray largely unremarkable. Fall precautions. Nutrition consult. Consider appetite stimulant. Status: Acute (2) Leukocytosis: Possibly secondary to stress-induced versus occult infection. Status post levofloxacin and vancomycin in the ED. Blood cultures pending. Urinalysis and checks x-ray large unremarkable. Continue empiric antibiotics with Unasyn. Procalcitonin and CRP ordered. Status: Acute (3) Acute kidney injury: Suspect secondary to dehydration from poor p.o. intake and possibly a component of rhabdomyolysis. Start IV fluids. Avoid nephrotoxins. Strict I's and O's. Repeat renal panel in a.m. Encourage p.o. intake. Status: Acute (4) Aspiration of food: MBS reviewed from 09/03 Soft mechanical diet with pur?e Speech therapy consultation Possibly could be source of infection Status: Acute (5) Sacral ulcer: Does not appear infected on exam. Continue wound care. Status: Acute (6) Hyperkalemia: IV fluids as above. Holding BRINA inhibitor. Telemetry monitoring. Status: Acute (7) Hyperbilirubinemia: Unclear significance. Repeat in AM. Status: Acute (8) High anion gap metabolic acidosis: Likely secondary to NELSON. Repeat renal panel in a.m. Status: Acute (9) Myocardial injury: Acute myocardial injury likely secondary to stress from the fall compounded by NELSON. EKG s/f SR w/ 1st degree block. RBBB, LAFB. Holter monitor (08/29) unremarkable. Repeat troponin. Denies chest pain. Status post aspirin in the ED. Telemetry monitoring. Status: Acute (10) GERD (gastroesophageal reflux disease): Hold PPI due to NELSON. Status: Acute (11) Hypothyroidism: TFTs within normal limits. Continue home Synthroid. Status: Acute (12) Type 2 diabetes mellitus: Diet controlled. Status: Acute (13) Benign prostatic hyperplasia: Continue Flomax. Status: Acute (14) Hypertension: Hold home amlodipine, Lasix, and lisinopril due to NELSON. Monitor blood pressure. Status: Acute Plan DVT prophylaxis: Heparin CODE STATUS: Full code?discussed with patient. Attestations Medical Necessity Statement*: Patient's hospitalization expected to cross 2 midnights for IV fluids, infectious work-up, and IV antibiotics. Coding Level of Care Code Acute Clinical Systems Educator for [facility] Fwd Diagnoses GERD (gastroesophageal reflux disease) K21.9 Hypothyroidism E03.9 Type 2 diabetes mellitus E11.9 Benign prostatic hyperplasia N40.0 Hypertension I10 Aspiration of food T17.928A Generalized weakness R53.1 Leukocytosis D72.829 Sacral ulcer L98.429 Hyperkalemia E87.5 Acute kidney injury N17.9 High anion gap metabolic acidosis E87.2 Hyperbilirubinemia E80.6 Myocardial injury I5A
[2021-09-07] MEDS: vancomycin 1,000 MG in sodium chloride 0.9% 250 ML 250 MG IV (14:04)
[2021-09-07] MEDS: sodium chloride 0.9% 1,000 ML 999 ML IV (14:05)
[2021-09-07 14:48] LABS: Lactate (Lactic Acid level) 1.4 mmol/L (0.5-2.2)
[2021-09-07] MEDS: levofloxacin-dextrose 5 % 750 MG/150 ML PREMIX 100 MG IV (15:14)
--- NOTE | 2021-09-07 15:31 | ECG_ITS ---
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 Measurements Intervals [place] Rate: 82 P: -64 DC: 221 QRS: -79 QRSD: 131 T: 33 QT: 372 QTc: 435 Interpretive Statements ECTOPIC ATRIAL RHYTHM WITH FIRST DEGREE AV BLOCK RIGHT BUNDLE BRANCH BLOCK [120+ ms QRS DURATION, UPRIGHT V1, 40+ ms S IN I/aVL/V4/V5/V6] LEFT ANTERIOR FASCICULAR BLOCK [QRS AXIS <= -45, QR IN I, RS IN II] Compared to ECG 09/07/2021 12:06:22 Ectopic atrial rhythm now present Sinus rhythm no longer present Electronically Signed On 09-08-2021 21:08:26 CDT by Dione Miller M.D. [email or web address]
[2021-09-07 15:51] LABS: C Reactive Protein 139.3 mg/L (0.0-4.9)
[2021-09-07 15:58] LABS: Procalcitonin 1.81 ng/mL (0-0.5)
[2021-09-07 16:00] VITALS: BP 112/51; PULSE 87; RESP 17; TEMP 37.1; O2SAT 97
[2021-09-07 16:21] LABS: Troponin 5 6HR 95.58 ng/L (0-15)
[2021-09-07 16:39] LABS: Troponin 5 6HR Delta 6.58 ng/L (0-12)
[2021-09-07] MEDS: dextrose 5%-sod chloride 0.45% 1,000 ML 75 ML IV (17:25)
[2021-09-07] MEDS: heparin 5,000 unit/mL INJ 1 mL 5000 UNIT SUBCUT (17:26)
[2021-09-07 17:36] VITALS: BP 111/63; PULSE 87; RESP 16; TEMP 36.9; O2SAT 97
[2021-09-07 20:00] VITALS: BP 123/62; PULSE 96; RESP 17; TEMP 36.8; O2SAT 96
[2021-09-07 21:02] VITALS: PULSE 88
[2021-09-07 21:16] VITALS: PULSE 82
[2021-09-08] VITALS: BP 99/55; PULSE 98; RESP 18; TEMP 36.8; O2SAT 94
[2021-09-08 03:56] VITALS: BP 96/52; PULSE 93; RESP 17; TEMP 37.1; O2SAT 96
[2021-09-08] MEDS: heparin 5,000 unit/mL INJ 1 mL 5000 UNIT SUBCUT (05:24)
[2021-09-08 05:26] LABS: Basophils # 0.1 10^3/uL (0.0-0.1); Basophils % 0.3 %; Eosinophils % 0.1 %; Hematocrit 27.1 % (42.0-52.0); Hemoglobin 8.8 g/dL (11.7-16.6); Lymphocytes # 1.4 10^3/uL (0.8-4.8); Lymphocytes % 8.9 %; Mean Corpuscular HGB Conc 32.5 g/dL (30.0-36.0); Mean Corpuscular Hemoglobin 30.1 pg (28.0-34.0); Mean Corpuscular Volume 92.8 fl (80-94); Mean Platelet Volume 9.3 fL (7.4-10.4); Monocytes % 6.4 %; Neutrophils # 13.11 10^3/uL (1.8-7.7); Neutrophils % 83.5 %; Nucleated Red Blood Cells % 0 %; Platelet Count 257 10^3/cmm (130-400); Red Blood Count 2.92 10^6/uL (4.1-5.3); White Blood Count 15.7 10^3/uL (4.0-10.0)
[2021-09-08 05:35] VITALS: PULSE 78
[2021-09-08 05:38] LABS: Alanine Aminotransferase 10 U/L (0-41); Albumin Level 2.5 g/dL (3.5-5.2); Alkaline Phosphatase 58 IU/L (40-130); Aspartate Amino Transferase 45 U/L (0-40); Blood Urea Nitrogen 24 mg/dL (8-23); Calcium 7.5 mg/dL (8.5-10.5); Carbon Dioxide 20 mmol/L (22-29); Chloride 102 mmol/L (98-107); Globulin 2.7 g/dL (1.3-4.6); Glucose 98 mg/dL (65-115); Magnesium 1.6 mg/dL (1.7-2.3); Osmolality Calculated 274 mOsm/kg (285-295); Sodium 130 mmol/L (136-145); Total Bilirubin 0.8 mg/dL (0.15-1.2); Total Protein 5.2 g/dL (6.6-8.7)
[2021-09-08 06:25] LABS: Glucose Point of Care 98 mg/dL (70-110)
[2021-09-08 06:25] LABS: Glucose Point of Care 102 mg/dL (70-110)
[2021-09-08 06:39] LABS: Glucose Point of Care 92 mg/dL (70-110)
[2021-09-08 07:16] VITALS: BP 82/56; PULSE 89; RESP 16; TEMP 36.9; O2SAT 93
[2021-09-08] MEDS: tamsulosin 0.4 mg Capsule PO (08:29)
[2021-09-08] MEDS: levothyroxine 25 mcg Tablet PO (08:29)
[2021-09-08] MEDS: dextrose 5%-sod chloride 0.45% 1,000 ML 75 ML IV (08:34)
[2021-09-08 10:37] LABS: C Reactive Protein 155.3 mg/L (0.0-4.9); Ferritin 639 ng/mL (30-400); Iron 15 ug/dL (59-158); Percent Saturation 12.5 % (20-50); Total Iron Binding Capacity 120 mcg/dl; Unsaturated Iron Binding 105 ug/dL (112-347)
[2021-09-08 10:39] LABS: Lactate (Lactic Acid level) 1.3 mmol/L (0.5-2.2)
[2021-09-08 11:19] VITALS: BP 104/52; PULSE 80; RESP 18; TEMP 36.8; O2SAT 93
[2021-09-08 11:38] LABS: Glucose Point of Care 109 mg/dL (70-110)
--- NOTE | 2021-09-08 12:02 | P.DS_ITS ---
Discharge Providers Date of Admission: 09/07/21 13:59 Date of Discharge: September 08, 2021 Attending Provider at Admission: Jose Garcia MD Attending Provider at Discharge: Lucius Madrigal MD Primary Care Provider: Rakesh Middleton MD Diagnoses at Discharge Discharge Diagnosis (1) Generalized weakness: Status: Acute (2) Leukocytosis: Status: Acute (3) Acute kidney injury: Status: Acute (4) Aspiration of food: Status: Acute (5) Sacral ulcer: Status: Acute (6) Hyperkalemia: Status: Acute (7) Hyperbilirubinemia: Status: Acute (8) High anion gap metabolic acidosis: Status: Acute (9) Myocardial injury: Status: Acute (10) GERD (gastroesophageal reflux disease): Status: Acute (11) Hypothyroidism: Status: Acute (12) Type 2 diabetes mellitus: Status: Acute (13) Benign prostatic hyperplasia: Status: Acute (14) Hypertension: Status: Acute Reason for Visit Reason for Visit: GENERAL WEAKNESS Hospital Course Hospital Course This is a 86-year-old male with a past medical history of hypertension, type 2 diabetes mellitus, BPH, hypothyroidism, who presents [facility] due to being found down. Patient was admitted to [facility] due to generalized weakness, failure to thrive, unintended weight loss likely secondary to poor oral intake, dehydration, recurrent aspiration pneumonia, aspiration pneumonitis. He received IV fluids, as inpatient, clinically improved, blood pressures soft, on discharge his blood pressure medication has been discontinued. Patient and son adamant about discharge home, he will go and live with his son, who will take care of him, he has taking care of his father in the past. I have discharged him on instructions to drink plenty of electrolyte balance fluids, serum sodium is 130, aspiration discussion as below. His lisinopril and Norvasc have been discontinued. Leukocytosis, likely stress-induced, and a component related to aspiration pneumonitis and aspiration pneumonia. He has multiple antibiotic allergies, will discharge him on Levaquin. Patient also had acute kidney injury during his hospitalization, likely secondary to rhabdomyolysis, dehydration., Receive IV fluids. Discharged on instructions to drink plenty of electrolyte balance fluids, follow-up with primary care provider 1 week Patient had a sacral ulcer during his hospitalization, discharged on generalized wound care, monitor as outpatient, continue to offload Patient also had high anion gap metabolic acidosis, hyperbilirubinemia, NELSON likely secondary dehydration, rhabdomyolysis, improved on discharge, continue to hydrate well follow-up with primary care provider as outpatient -Modified barium swallow 09/04/2019 The swallowing of varying consistencies of barium was evaluated with video fluoroscopy with the patient in the sitting upright position. Examination was supervised by the speech therapy department. Patient was observed to have a small amount of contrast entered the upper airway with different consistencies of barium. A full analysis with report will be rendered by the speech therapy department. A follow-up chest x-ray will be obtained to identify any aspirated barium. -Patient was seen by speech pathology, does display wet vocal quality with multiple consistencies, patient is not fully aware of need to clear his throat, no coughing, choking episodes noted during minimal to intake, results of modified barium swallow discussed with patient and son, swallow exercises and compensatory strategies discussed, handout provided -I had a detailed discussion with patient and son, advised that he has high risk of recurrent aspiration, aspiration pneumonitis, aspiration pneumonia, sepsis, septic shock, morbidity and mortality associated -Discussed options including but not limited to PEG tube placement versus continuing conservative interventions -After discussing risks and benefits, they have declined PEG tube placement, continue conservative interventions, aspiration precautions, interventions as provided by speech and swallow -However I was clear with patient family that unfortunately he will continue to have a high risk of aspiration, aspiration pneumonitis, recurrent hospitalizations, they voiced understanding, all questions answered -I will discharge him on Levaquin for antibiotic coverage given his multiple allergies For reported calorie malnutrition, advised of Ensure drinks or boost drinks at least twice a day I have recommended PT OT, speech therapy at home, however patient's son says that they have plenty of help at his home, declined for now Physical Exam Const: COMMON NORMALS: no acute distress and patient oriented x3 GENERAL APPEARANCE: frail appearing Resp: COMMON NORMALS: normal respiratory effort, No retractions, No use of accessory muscles and clear to auscultation bilaterally AUSCULTATION: clear to auscultation bilaterally Cardio: COMMON NORMALS: regular rate, regular rhythm, S1 normal heart sound present and S2 normal heart sound present RATE: regular rate RHYTHM: regular rhythm HEART SOUNDS: S1 normal heart sound present and S2 normal heart sound present GI: COMMON NORMALS: Normal to inspection, nondistended, normoactive bowel sounds present, Soft to palpation and non-tender PALPATION: Yes Soft to palpation Extremity: COMMON NORMALS: no pedal edema Neuro: COMMON NORMALS: patient oriented x3 Psych: COMMON NORMALS: mental status grossly normal Discharge Data Studies Completed and Pending Completed Studies During Hospitalization Category Date Time Status CT head wo con* [id number] Stat Cat Scan 09/07/21 09:30 Completed XR chest 1V portable [id number] Stat Exams 09/07/21 09:30 Completed Pending at discharge Category Date Time Status Blood Culture Stat Lab 09/07/21 15:28 Results CDIFF [Clostridioides Difficile PCR] Routine Lab 09/08/21 10:08 Uncollected Enteric Parasite Panel by PCR Routine Lab 09/08/21 10:07 Uncollected Occult Blood Stool [Immunochemical Fecal OCB] Routine Lab 09/08/21 09:21 Uncollected Stool Culture, Bacterial [Enteric Bacterial Panel by Lab 09/08/21 10:07 Uncollected PCR] Routine CV. echo complete* [id number] Routine Ultrasound 09/08/21 09:21 Ordered Radiology Impressions Chest X-Ray 09/07/21 09:30 IMPRESSION: No acute cardiopulmonary abnormality identified. Head CT 09/07/21 09:30 IMPRESSION: 1. The most apical portion of the head is not included in the field of view. 2. No acute intracranial abnormality within the field of view. 3. Minimal layering fluid in the right maxillary sinus. Laboratory Results WBC 15.7 10^3/uL (4.0-10.0) H 09/08/21 05:05 RBC 2.92 10^6/uL (4.1-5.3) L 09/08/21 05:05 Hgb 8.8 g/dL (11.7-16.6) L 09/08/21 05:05 Hct 27.1 % (42.0-52.0) L 09/08/21 05:05 MCV 92.8 fl (80-94) 09/08/21 05:05 MCH 30.1 pg (28.0-34.0) 09/08/21 05:05 MCHC 32.5 g/dL (30.0-36.0) 09/08/21 05:05 RDW 15.0 % (12.1-15.1) 09/08/21 05:05 Plt Count 257 10^3/cmm (130-400) 09/08/21 05:05 MPV 9.3 fL (7.4-10.4) 09/08/21 05:05 Neut % (Auto) 83.5 % 09/08/21 05:05 Lymph % (Auto) 8.9 % 09/08/21 05:05 [place] % (Auto) 6.4 % 09/08/21 05:05 Eos % (Auto) 0.1 % 09/08/21 05:05 Baso % (Auto) 0.3 % 09/08/21 05:05 Neut # (Auto) 13.11 10^3/uL (1.8-7.7) H 09/08/21 05:05 Lymph # (Auto) 1.4 10^3/uL (0.8-4.8) 09/08/21 05:05 [place] # (Auto) 1.0 10^3/uL (0.2-0.9) H 09/08/21 05:05 Eos # (Auto) 0.0 10^3/uL (0.0-0.8) 09/08/21 05:05 Baso # (Auto) 0.1 10^3/uL (0.0-0.1) 09/08/21 05:05 Nucleated RBC % (auto) 0 % 09/08/21 05:05 Nucleated RBCs # 0.0 /100WBC 09/08/21 05:05 Sodium 130 mmol/L (136-145) L 09/08/21 05:05 Potassium 4.0 mmol/L (3.5-5.1) 09/08/21 05:05 Chloride 102 mmol/L (98-107) 09/08/21 05:05 Carbon Dioxide 20 mmol/L (22-29) L 09/08/21 05:05 Anion Gap 12.0 (5-19) 09/08/21 05:05 BUN 24 mg/dL (8-23) H 09/08/21 05:05 Creatinine 1.5 mg/dL (0.7-1.2) H 09/08/21 05:05 GFR Calculation Not Reportable 09/08/21 05:05 Glucose 98 mg/dL (65-115) 09/08/21 05:05 POC Glucose 109 mg/dL (70-110) 09/08/21 10:37 Calculated Osmolality 274 mOsm/kg (285-295) L 09/08/21 05:05 Lactate 1.3 mmol/L (0.5-2.2) 09/08/21 10:08 Calcium 7.5 mg/dL (8.5-10.5) L 09/08/21 05:05 Phosphorus 3.0 mg/dL (2.5-4.5) 09/08/21 05:05 Magnesium 1.6 mg/dL (1.7-2.3) L 09/08/21 05:05 Iron 15 ug/dL (59-158) L 09/08/21 10:08 TIBC 120 mcg/dl 09/08/21 10:08 % Saturation 12.5 % (20-50) L 09/08/21 10:08 Unsat Iron Binding 105 ug/dL (112-347) L 09/08/21 10:08 Ferritin 639 ng/mL (30-400) H 09/08/21 10:08 Total Bilirubin 0.8 mg/dL (0.15-1.2) 09/08/21 05:05 AST 45 U/L (0-40) H 09/08/21 05:05 ALT 10 U/L (0-41) 09/08/21 05:05 Alkaline Phosphatase 58 IU/L (40-130) 09/08/21 05:05 Creatine Kinase 704 U/L (39-308) H* 09/07/21 09:35 Troponin T Baseline 89 ng/L (0-15) H 09/07/21 09:35 Troponin T 120 Minute 98.40 ng/L (0-15) H 09/07/21 12:26 Delta Troponin T 9.40 ABS# (0-10) 09/07/21 12:26 Troponin T Hi Sens 6Hr 95.58 ng/L (0-15) H 09/07/21 15:28 Troponin T Hi Sens 6Hr Delta 6.58 ng/L (0-12) 09/07/21 15:28 C-Reactive Protein 155.3 mg/L (0.0-4.9) H 09/08/21 10:08 NT-Pro-B Natriuret Pep 5246 pg/mL (0-450) H 09/07/21 09:35 Total Protein 5.2 g/dL (6.6-8.7) L D 09/08/21 05:05 Albumin 2.5 g/dL (3.5-5.2) L 09/08/21 05:05 Globulin 2.7 g/dL (1.3-4.6) 09/08/21 05:05 Procalcitonin 1.81 ng/mL (0-0.5) H 09/07/21 09:35 TSH 2.62 uIU/mL (0.27-4.20) 09/07/21 09:35 Free T4 1.29 ng/dL (0.82-1.77) 09/07/21 09:35 Urine Color Yellow (Yellow) 09/07/21 13:25 Urine Appearance Clear (CLEAR) 09/07/21 13:25 Urine pH 5 (5-7) 09/07/21 13:25 Ur Specific [place] 1.010 (1.005-1.030) 09/07/21 13:25 Urine Protein Neg (Negative) 09/07/21 13:25 Urine Glucose (UA) Norm (Normal) 09/07/21 13:25 Urine Ketones Negative (Negative) 09/07/21 13:25 Urine Blood 2+ (Negative) H 09/07/21 13:25 Urine Nitrate Negative (Negative) 09/07/21 13:25 Urine Bilirubin Neg (Negative) 09/07/21 13:25 Urine Urobilinogen Norm mg/dL (Negative) 09/07/21 13:25 Ur Leukocyte Esterase Negative (Negative) 09/07/21 13:25 Urine RBC 0-4 /hpf (0-2) H 09/07/21 13:25 Urine WBC Rare /hpf (0-5) 09/07/21 13:25 Ur Squamous Epith Cells None /hpf (0-5) 09/07/21 13:25 Amorphous Sediment Not Reportable 09/07/21 13:25 Urine Bacteria 1+ /hpf (NONE) H 09/07/21 13:25 Hyaline Casts 0-4 /lpf H 09/07/21 13:25 SARS-CoV-2 Ag (Rapid) Negative (Negative) 09/07/21 09:40 Vitals Last Vital Signs Temp 98.2 F 09/08/21 11:19 Pulse 80 09/08/21 11:19 Resp 18 09/08/21 11:19 BP 104/52 09/08/21 11:19 Pulse Ox 93 09/08/21 11:19 Discharge Plan Discharge Patient Disposition: Home Condition: Stable Prescriptions: New sucralfate [Carafate] 1 gram tablet 1 g PO BID 28 Days Qty: 56 0RF levofloxacin 750 mg tablet 750 mg PO Q48H 5 Days Qty: 3 0RF Continued furosemide 20 mg tablet 20 mg PO DAILY PRN (Reason: edema) Qty: 7 0RF allopurinol 100 mg tablet 100 mg PO DAILY 0RF levothyroxine 25 mcg tablet 25 mcg PO DAILY 0RF tamsulosin 0.4 mg capsule 0.4 mg PO DAILY 0RF B12 5,000-100 mcg Lozenge 1 italo SUBLINGUAL DAILY 0RF Changed pantoprazole 40 mg tablet,delayed release (DR/EC) 40 mg PO BIDWM 30 Days Qty: 60 0RF Discontinued lisinopril 40 mg tablet 40 mg PO DAILY 0RF amlodipine 5 mg tablet 5 mg PO DAILY 0RF Discharge Orders: Discharge Order (Routine); Ordered 09/08/21 Ordered By: Lucius Madrigal Referrals: Rakesh Middleton MD [Primary Care Provider] - Discharge Diet: As Directed Discharge Activity: Resume usual activity Patient Instructions: Opioid Safety Activity Restrictions/Additional Instructions: - Aspiration precautions, swallow exercises a compensatory strategies discussed by speech therapy, please employ, handout provided -Take antibiotics as prescribed -Please drink plenty of electrolyte balance fluids such as Gatorade or Powerade -Please discontinue amlodipine and lisinopril - Discharge Attestations Time Spent in Discharge Care*: less than 30 min Quality Metrics Clinical Quality Measures [ No reported AMI, CVA or VTE this stay] Coding Level of Care Code Acute Chg FW DC note Diagnoses Generalized weakness R53.1 Leukocytosis D72.829 Acute kidney injury N17.9 Aspiration of food T17.928A Sacral ulcer L98.429 Hyperkalemia E87.5 Hyperbilirubinemia E80.6 High anion gap metabolic acidosis E87.2 Myocardial injury I5A GERD (gastroesophageal reflux disease) K21.9 Hypothyroidism E03.9 Type 2 diabetes mellitus E11.9 Benign prostatic hyperplasia N40.0 Hypertension I10
[2021-09-08 13:11] VITALS: BP 104/52; PULSE 80; RESP 18; TEMP 36.8; O2SAT 93
== END 2021-09-08 13:10 | disposition home health service (06) | DRG 682 ==
LOC: ER 14:56 → MEDSURG 15:01
PROVIDERS: Admitting Provider Internal Medicine; Emergency Provider Emergency Medicine; PCP Family Medicine; Visit Provider Family Medicine
DX: N17.9 Acute kidney failure, unspecified (principal); E43 Unspecified severe protein-calorie malnutrition; J69.0 Pneumonitis due to inhalation of food and vomit; E87.2 Acidosis; M62.82 Rhabdomyolysis; I5A Non-ischemic myocardial injury (non-traumatic); Z88.0 Allergy status to penicillin; Z68.20 Body mass index [BMI] 20.0-20.9, adult; I10 Essential (primary) hypertension; E11.9 Type 2 diabetes mellitus without complications; N40.0 Benign prostatic hyperplasia without lower urinary tract symptoms; E03.9 Hypothyroidism, unspecified; E87.5 Hyperkalemia; K21.9 Gastro-esophageal reflux disease without esophagitis; Z87.01 Personal history of pneumonia (recurrent); E86.0 Dehydration; L89.152 Pressure ulcer of sacral region, stage 2
CPT/HCPCS: 36415; 36416; 51701; 70450; 71045; 80053; 81001; 82550; 82728; 82962; 83540; 83550; 83605; 83735; 83880; 84100; 84145; 84439; 84443; 84484; 85025; 86140; 87040; 87426; 92526; 92610; 93005; 96365; 96372; 97110; 97161; 99285; J1644; J1956; J3370; J7030; J7050; J7799